=== PATIENT | female | born 1975 | race Two or more races ===

== ENCOUNTER 2022-03-16 06:28 | Day surgery (SDC) | payer OTHER ==
[2022-03-16] MEDS ORDERED: MORGIDOX100 MG PO (08:30)
[2022-03-16] MEDS ORDERED: NAPR500T14 PO (08:30)
== END 2022-03-16 13:00 | disposition home or self-care (01) ==
LOC: CIR.AMB 06:28
PROVIDERS: ATTEND Obstetrics & Gynecology
DX: D25.0 Submucous leiomyoma of uterus (principal); N80.0 Endometriosis of uterus; I10 Essential (primary) hypertension; Z86.16 Personal history of COVID-19; G43.909 Migraine, unspecified, not intractable, without status migrainosus; I25.2 Old myocardial infarction; Z20.822 Contact with and (suspected) exposure to COVID-19